=== PATIENT | male | born 1960 | race Caucasian/White ===

== ENCOUNTER 2016-12-23 11:07 | Emergency (ER) | payer OTHER ==
[~2016-12-23] VITALS: Ht 157.5 cm; Wt 57.6 kg
[2016-12-23] MEDS ORDERED: AMLODIPINE BESY10 MG PO (11:33)
[2016-12-23] MEDS ORDERED: COZAAR 50 MG TA50 M2 PO (11:33)
[2016-12-23] MEDS ORDERED: ASPIR 8181 M1 PO (11:34)
[2016-12-23] MEDS ORDERED: PLAVIX 75 MG TA75 M1 PO (11:34)
[2016-12-23 12:43] LABS: HEMATOCRIT 27.7 % (42.0-52.0); HEMOGLOBIN 8.5 gm/dL (14.0-18.0); MCH 21.5 pg (26.0-34.0); MCHC 30.6 g/dL (28.0-37.0); MCV 70.5 fL (80.0-100.0); PLATELET COUNT 460 thou/uL (150-400); RBC 3.93 mil/uL (4.50-6.00)
[2016-12-23 12:46] LABS: CALCIUM 8.5 mg/dL (8.5-10.1); CREATININE 1.6 mg/dL (0.7-1.3); POTASSIUM 4.6 mmol/L (3.5-5.1)
[2016-12-23 12:50] LABS: MANUAL DIFF YES
[2016-12-23 13:22] LABS: ABSOLUTE NEUTROPHILS 12.1 thou/uL (1.4-8.2); ANISOCYTOSIS 2+; PLATELET ESTIMATE INCREASED; TOTAL CELL COUNT 100
[2016-12-23 13:23] LABS: HYPOCHROMASIA 3+; MICROCYTES 3+
[2016-12-23 13:44] VITALS: BP 108/60
== END 2016-12-23 14:32 | disposition home or self-care (01) ==
LOC: ER 11:07
PROVIDERS: Emergency Medicine
DX: E86.0 Dehydration (principal); R42 Dizziness and giddiness; I95.9 Hypotension, unspecified; I10 Essential (primary) hypertension; I25.10 Atherosclerotic heart disease of native coronary artery without angina pectoris; J44.9 Chronic obstructive pulmonary disease, unspecified; K74.60 Unspecified cirrhosis of liver; F10.99 Alcohol use, unspecified with unspecified alcohol-induced disorder; Z86.718 Personal history of other venous thrombosis and embolism; Z86.19 Personal history of other infectious and parasitic diseases; Z98.890 Other specified postprocedural states; Z91.041 Radiographic dye allergy status; Z87.891 Personal history of nicotine dependence